=== PATIENT | female | born 1995 | race Caucasian/White ===

== ENCOUNTER 2018-07-01 02:08 | Emergency (ER) | payer MEDICAID ==
[~2018-07-01] VITALS: Ht 157.5 cm; Wt 63.5 kg
[2018-07-01 02:19] VITALS: Ht 157.5 cm; Wt 63.5 kg
[2018-07-01 09:35] VITALS: BP 118/74
== END 2018-07-01 09:35 | disposition home or self-care (01) ==
LOC: EDBD 02:08 → ED 02:08
DX: F10.129 Alcohol abuse with intoxication, unspecified (principal); R11.2 Nausea with vomiting, unspecified
CPT/HCPCS: J2405; J7030